=== PATIENT | male | born 1965 | race Caucasian/White ===

== ENCOUNTER 2023-01-18 07:48 | Outpatient (CLI) | payer OTHER, SELFPAY | END 2023-01-18 07:49 | disposition home or self-care (01) | PROVIDERS: PCP Family Medicine; Visit Provider Family Medicine | DX: Z00.00 Encounter for general adult medical examination without abnormal findings (principal); L65.9 Nonscarring hair loss, unspecified; Z13.1 Encounter for screening for diabetes mellitus; Z13.6 Encounter for screening for cardiovascular disorders | CPT/HCPCS: 80061; 82947; 84443 ==

== ENCOUNTER 2023-02-08 06:34 | Outpatient (CLI) | payer OTHER, SELFPAY ==
--- NOTE | 2023-02-08 07:53 | W.ANESCHARGE ---
Anesthesia Charges Start Date/Time Anesthesia Start Date: 02/08/23 Anesthesia Start Time: 07:25 Stop Date/Time Anesthesia Stop Date: 02/08/23 Anesthesia Stop Time: 07:48
--- NOTE | 2023-02-08 10:20 | W.ANESCHARGE ---
Anesthesia Charges Start Date/Time Anesthesia Start Date: 02/08/23 Anesthesia Start Time: 07:25 Stop Date/Time Anesthesia Stop Date: 02/08/23 Anesthesia Stop Time: 07:48
--- NOTE | 2023-02-08 10:21 | W.ANESCHARGE ---
Anesthesia Charges Start Date/Time Anesthesia Start Date: 02/08/23 Anesthesia Start Time: 07:25 Stop Date/Time Anesthesia Stop Date: 02/08/23 Anesthesia Stop Time: 07:48
== END 2023-02-08 06:35 | disposition home or self-care (01) ==
LOC: OP CLINIC 06:35
PROVIDERS: PCP Family Medicine; Visit Provider Internal Medicine
DX: Z12.11 Encounter for screening for malignant neoplasm of colon (principal)
CPT/HCPCS: 00811; 00812; 45378; J2704